=== PATIENT | female | born 1980 | race African-American/Black ===

== ENCOUNTER 2023-05-03 06:55 | Emergency (ER) | payer SELFPAY ==
[2023-05-03] MEDS ORDERED: Ondansetron 4 MG/2 ML SDV IVPUSH ONE (07:38)
[2023-05-03] MEDS ORDERED: Sodium Chloride 0.9% 1,000 ML IV ONE (07:38)
[2023-05-03] MEDS ORDERED: Ketorolac 30 MG/ML SDV IVPUSH ONE (07:38)
[2023-05-03 08:21] LABS: HEMATOCRIT 34.5 % (36.0-46.0); HEMOGLOBIN 10.8 g/dL (12.0-16.0); MEAN CORPUSCULAR HEMOGLOBIN 22.9 pg (27.0-32.0); MEAN CORPUSCULAR HGB CONC 31.3 g/dL (31.0-37.0); MEAN CORPUSCULAR VOLUME 73.1 fL (80.0-98.0); NRBC ABSOLUTE 0 K/uL; PLATELET COUNT,PLT 224 K/uL (150-400); RED BLOOD CELL COUNT 4.72 M/uL (4.30-5.90); WHITE BLOOD CELL COUNT,WBC 9.29 K/uL (4.0-11.0)
[2023-05-03 08:35] LABS: A/G RATIO 0.5 (0.9-1.6); ALBUMIN 2.8 g/dL (3.4-5.0); BILIRUBIN TOTAL 0.7 mg/dL (0.2-1.0); CALCIUM 8.7 mg/dL (8.5-10.1); CARBON DIOXIDE,CO2 23.5 mmol/L (21.0-32.0); CREATININE 1.4 mg/dL (0.6-1.0); EST CRCL DRUG DOSING (CG) 47.03 mL/min; POTASSIUM,K 3.8 mmol/L (3.5-5.1); PROTEIN TOTAL,TP 8.4 g/dL (6.4-8.2)
[2023-05-03 08:41] LABS: APPEARANCE,URINE CLEAR; BILIRUBIN,URINE NEGATIVE (NEGATIVE); COLOR,URINE YELLOW; GLUCOSE,URINE >=1000 mg/dL (NEGATIVE); KETONES,URINE 40 mg/dL (NEGATIVE); LEUKOCYTE ESTERASE,URINE NEGATIVE (NEGATIVE); NITRITE,URINE NEGATIVE (NEGATIVE); OCCULT BLOOD,URINE NEGATIVE (NEGATIVE); PH,URINE 5.5 (5.0-8.0); PROTEIN,URINE 30 mg/dL (NEGATIVE); UROBILINOGEN,URINE 0.2 EU/dL (<2.0)
[2023-05-03 09:01] LABS: HEMOGLOBIN A1C 13.8 %
[2023-05-03 09:04] LABS: RBC,URINE 0-2 (0-2/HPF)
[2023-05-03 09:15] LABS: BAND ABSOLUTE MAN 1.5; BAND PERCENT MAN 16 %; LYMPHOCYTES ABSOLUTE MAN 1.1 (0.6-2.4); LYMPHOCYTES PERCENT MAN 12 % (16.0-40.0); SEG NEUTROPHILS ABSOLUTE MAN 5.9 (1.4-5.7); SEG NEUTROPHILS PERCENT MAN 64 % (48.0-80.0)
[2023-05-03 09:16] LABS: MONOCYTES ABSOLUTE MAN 0.7 (0.0-0.8); MONOCYTES PERCENT MAN 8 % (0.0-15.0)
== END 2023-05-03 10:29 | disposition home or self-care (01) ==
LOC: MW.ED 06:55
DX: N13.2 Hydronephrosis with renal and ureteral calculous obstruction (principal); E11.9 Type 2 diabetes mellitus without complications
CPT/HCPCS: 36415; 74176; 80053; 81001; 81025; 83036; 83690; 85025; 96361; 96374; 96375; 99284; J1885; J2405; J7030

== ENCOUNTER 2025-04-25 18:03 | Emergency (ER) | payer SELFPAY ==
[2025-04-25] MEDS ORDERED: Sodium Chloride 0.9% 2.5 ML Syringe FLUSH PRN (18:35)
[2025-04-25] MEDS ORDERED: Sodium Chloride 0.9% 10 ML Syringe FLUSH PRN (18:35)
[2025-04-25 18:44] LABS: MEAN PLATELET VOLUME 10.5 fL (9.4-12.3); NRBC ABSOLUTE 0.02 K/uL (0.00-0.02); NRBC PERCENT 0.7 /100WBC (0.0-0.2); PLATELET COUNT,PLT 142 K/uL (150-400); RED BLOOD CELL COUNT 5.02 M/uL (4.10-5.30); WHITE BLOOD CELL COUNT,WBC 2.75 K/uL (3.9-11.3)
[2025-04-25] MEDS: Ondansetron 4 MG/2 ML SDV IVPUSH ONE (18:59)
[2025-04-25 19:00] LABS: A/G RATIO 0.4 (0.9-1.6); ALANINE AMINOTRANSFERASE,ALT 19.0 IU/L (14-63); ASPARTATE AMNIOTRANSFERASE,AST 26.0 IU/L (15-37); BILIRUBIN TOTAL 1.3 mg/dL (0.2-1.0); BLOOD UREA NITROGEN,BUN 46.0 mg/dL (7.0-18.0); CARBON DIOXIDE,CO2 19.3 mmol/L (21.0-32.0); CHLORIDE,CL 90.0 mmol/L (98-107); CREATININE 3.3 mg/dL (0.6-1.0); EST CRCL DRUG DOSING (CG) 21.95 mL/min; GLUCOSE RANDOM 476.0 mg/dL (74-106); POTASSIUM,K 4.0 mmol/L (3.5-5.1); PROTEIN TOTAL,TP 8.0 g/dL (6.4-8.2); SODIUM,NA 124.0 mmol/L (136-145)
[2025-04-25 19:03] LABS: ESTIMATED GFR 17.0 mL/min (>60)
[2025-04-25 19:16] LABS: BAND ABSOLUTE MAN 0.80; BAND PERCENT MAN 29 %; LYMPHOCYTES ABSOLUTE MAN 0.25 K/uL (1.00-4.80); LYMPHOCYTES PERCENT MAN 9 % (24-44); SEG NEUTROPHILS ABSOLUTE MAN 1.65 K/uL (1.80-7.70); SEG NEUTROPHILS PERCENT MAN 60 % (41-71)
[2025-04-25 19:17] LABS: METAMYELOCYTE ABSOLUTE MAN 0.03; METAMYELOCYTE PERCENT MAN 1 %; MYELOCYTE ABSOLUTE MAN 0.03; MYELOCYTE PERCENT MAN 1 %
[2025-04-25 19:24] LABS: APPEARANCE,URINE SLT CLOUDY; GLUCOSE,URINE >=1000 mg/dL (NEGATIVE); OCCULT BLOOD,URINE SMALL (NEGATIVE)
[2025-04-25 19:35] LABS: EPITHELIAL CELLS,URINE RARE (NONE-FEW)
[2025-04-25 19:50] LABS: BASE EXCESS VENOUS -4.0 (-2.0-3.0); BICARBONATE,VENOUS 17.0 mEq/L (23-28); PCO2 VENOUS 22.0 mmHG (41-51); PH,VENOUS 7.5 (7.31-7.41); PO2 VENOUS 120.0 mmHG (35-45)
[2025-04-25] MEDS: VANCOmycin 2 GM/400 ML 400 ML IV ONE (20:15)
[2025-04-25 21:27] LABS: BLOOD UREA NITROGEN,BUN 47.0 mg/dL (7.0-18.0); CARBON DIOXIDE,CO2 22.2 mmol/L (21.0-32.0); CHLORIDE,CL 93.0 mmol/L (98-107); CREATININE 3.4 mg/dL (0.6-1.0); EST CRCL DRUG DOSING (CG) 21.3 mL/min; GLUCOSE RANDOM 437.0 mg/dL (74-106); POTASSIUM,K 3.8 mmol/L (3.5-5.1); SODIUM,NA 127.0 mmol/L (136-145)
[2025-04-25 21:32] LABS: ESTIMATED GFR 16.0 mL/min (>60)
[2025-04-25] MEDS: Norepinephrine Bit/D5W Premix 250 ML IV SCH (22:50)
== END 2025-04-26 02:54 ==
LOC: MW.ED 18:03
DX: A41.9 Sepsis, unspecified organism (principal); R65.21 Severe sepsis with septic shock; N17.9 Acute kidney failure, unspecified; N12 Tubulo-interstitial nephritis, not specified as acute or chronic; R73.9 Hyperglycemia, unspecified; Z90.49 Acquired absence of other specified parts of digestive tract
CPT/HCPCS: 36415; 71045; 74176; 80048; 80053; 81001; 81025; 82009; 82803; 83605; 83690; 83735; 83930; 85025; 87040; 87077; 87086; 87154; 87186; 87426; 93005; 96361; 96365; 96366; 96367; 96375; 99291; 99292; A9270; J2405; J2543; J3375; J7030; 93010; 99285